=== PATIENT | female | born 1950 | race Two or more races ===

== ENCOUNTER 2022-05-21 10:30 | Emergency (ER) | payer OTHER ==
[~2022-05-21] VITALS: Ht 165.1 cm; Wt 87.1 kg
[2022-05-21] MEDS ORDERED: GLIMEPIRIDE4 MG (10:54)
[2022-05-21] MEDS ORDERED: HORIZANT300 MG PO (10:54)
[2022-05-21] MEDS ORDERED: CYMBALTA30 MG PO (10:54)
[2022-05-21] MEDS ORDERED: ELIQUIS5 M1 PO (10:54)
[2022-05-21] MEDS ORDERED: LEVOXYL50 MCG PO (10:55)
[2022-05-21] MEDS ORDERED: OMEPRAZOLE MAGN20 MG PO (10:55)
[2022-05-21] MEDS ORDERED: METFORMIN HCL1000 M2 PO (10:55)
[2022-05-21] MEDS ORDERED: MEMANTINE HCL1 EACH PO (10:55)
[2022-05-21] MEDS ORDERED: VERELAN180 MG PO (10:56)
[2022-05-21] MEDS ORDERED: ZOLPIDEM TARTR3.5 MG SL (10:56)
== END 2022-05-21 14:34 | disposition home or self-care (01) ==
LOC: ER 10:30
DX: A90 Dengue fever [classical dengue] (principal); E11.9 Type 2 diabetes mellitus without complications; Z79.84 Long term (current) use of oral hypoglycemic drugs; Z20.822 Contact with and (suspected) exposure to COVID-19

== ENCOUNTER 2023-01-30 17:14 | Emergency (ER) | payer OTHER ==
[~2023-01-30] VITALS: Ht 167.6 cm; Wt 81.6 kg
[~2023-01-30 17:14] MED LIST: CYMBALTA30 MG PO; ELIQUIS5 M1 PO; GLIMEPIRIDE4 MG; HORIZANT300 MG PO; LEVOXYL50 MCG PO; MEMANTINE HCL1 EACH PO; METFORMIN HCL1000 M2 PO; OMEPRAZOLE MAGN20 MG PO; VERELAN180 MG PO; ZOLPIDEM TARTR3.5 MG SL
[2023-01-30] MEDS ORDERED: JARDIANCE10 MG PO (17:29)
[2023-01-30] MEDS ORDERED: MESTINON60 M1 PO (17:37)
[2023-01-30] MEDS ORDERED: DUI500 PO (22:32)
[2023-01-30] MEDS ORDERED: ANTIVERT25 M2 PO (22:32)
== END 2023-01-30 22:45 | disposition home or self-care (01) ==
LOC: ER 17:14
DX: R42 Dizziness and giddiness (principal); E11.9 Type 2 diabetes mellitus without complications; Z79.84 Long term (current) use of oral hypoglycemic drugs; E03.9 Hypothyroidism, unspecified; M79.7 Fibromyalgia; G70.00 Myasthenia gravis without (acute) exacerbation; Z95.0 Presence of cardiac pacemaker

== ENCOUNTER 2024-05-04 21:07 | Emergency (ER) | payer OTHER ==
[~2024-05-04] VITALS: Ht 167.6 cm; Wt 86.2 kg
[~2024-05-04 21:07] MED LIST changes: +ANTIVERT25 M2 PO; +DUI500 PO; +JARDIANCE10 MG PO; +MESTINON60 M1 PO
[2024-05-04] MEDS ORDERED: HYDROCHLOROTHIA25 MG PO (21:56)
[2024-05-04] MEDS ORDERED: DULOXETINE HCL40 MG PO (21:57)
== END 2024-05-05 02:26 ==
LOC: ER 21:07
DX: R13.10 Dysphagia, unspecified (principal); E03.8 Other specified hypothyroidism